=== PATIENT | female | born 1970 | race Caucasian/White ===

== ENCOUNTER 2018-06-15 14:24 | Emergency (ER) | payer MEDICAID ==
[~2018-06-15] VITALS: Ht 154.9 cm; Wt 97.7 kg
[2018-06-15 14:31] VITALS: BP 120/81; Ht 154.9 cm; Wt 97.7 kg
[2018-06-15] MEDS ORDERED: SEROQUEL200 MG PO (14:36)
[2018-06-15] MEDS ORDERED: GLUCOPHAGE500 MG PO (14:36)
[2018-06-15] MEDS ORDERED: ZOLOFT100 MG PO (14:36)
== END 2018-06-15 17:00 | disposition left against medical advice (07) ==
LOC: D.ER 14:24
DX: M54.5 Low back pain (principal)